=== PATIENT | female | born 1930 | race Caucasian/White ===

== ENCOUNTER → 2019-12-07 | Outpatient (CLI) | payer OTHER ==
[~2019-12-07] MED LIST: ASA81BEC PO; AZELASTINE137 MCG/0. NASAL; CARVEDILOL3.125 MG PO; CELEXA 20 MG TA20 MG PO; FUROSEMIDE 40 M40 M1 PO; IRBESARTAN75 MG PO; LIPITOR 40 MG T40 M1 PO; NORVASC5 MG PO; PROTONIX40 M2 PO; VITAMIN D21250 MC1 PO
== END ==
LOC: LAB 10:44
PROVIDERS: ATTEND Ophthalmology
DX: Z01.812 Encounter for preprocedural laboratory examination (principal); Z20.828 Contact with and (suspected) exposure to other viral communicable diseases

== ENCOUNTER → 2019-12-13 | Day surgery (SDC) | payer OTHER ==
[~2019-12-13] VITALS: Ht 139.7 cm; Wt 57.1 kg
[2019-12-13 07:35] VITALS: BP 146/50
--- NOTE | 2019-12-17 06:17 | O ---
[facility] [place] [address] OPERATIVE REPORT Name: SHAHID MATOS Room #: REG [facility]#: [id number] Admission: 12/13/19 Attend Phys: Sammy Haque MD Discharge: Date of : 34 Report #: [id number] THIS REPORT FOR: cc: Manoj Huang MD,Manoj Haque,Sammy Ramsey MD ~ CC: Manoj Haque DATE OF SERVICE: 12/13/2019 SOLE INKER: None. PREOPERATIVE DIAGNOSIS: Unilateral left lower lid entropion. POSTOPERATIVE DIAGNOSIS: Unilateral left lower lid entropion. OPERATION PERFORMED: Unilateral left lower lid entropion repair. ANESTHESIA: Local with IV sedation. COMPLICATIONS: None. INDICATIONS FOR PROCEDURE: This patient has unilateral lower lid entropion with chronic irritation and discharge. The current procedure is being undertaken in order to improve the patient's level of comfort and visual function. Informed consent was obtained to include but not limited to the loss of vision, bleeding, infection, scarring, failure to improve the problem and need for further surgery. DESCRIPTION OF OPERATION: The patient was taken to the operating room, where 2% Xylocaine with epinephrine mixed with equal parts of 0.75% Marcaine with Wydase was administered transcutaneously and transconjunctivally to the lower lid and lateral canthal area. The patient was then prepped and draped in the usual sterile fashion. A Mary clamp was used to clamp the lateral canthus, following which a sharp canthotomy and cantholysis were performed. Hemostasis was achieved with a monopolar cautery, as it was throughout the case. A tarsal strip was prepared laterally, removing the lash-bearing portion of the redundant lid margin and the redundant tarsal plate. A transconjunctival dissection was then undertaken just inferior to the lower border of the tarsal plate. The lower lid retractors were disinserted from the inferior border of the tarsal plate. The lower lid retractors were then advanced and reattached to the anterior surface of the tarsal plate with mattress 5-0 chromic sutures passed [address] [address] OPERATIVE REPORT Name: SHAHID MATOS Room #: REG [facility]#: [id number] Admission: 12/13/19 Attend Phys: Sammy Haque MD Discharge: Date of : 34 Report #: [id number] transconjunctivally and secured in the infraciliary margin. The tarsal strip was then secured laterally with 2 interrupted 5-0 Prolene sutures. The subcutaneous structures and the skin were then closed with multiple interrupted 6-0 plain gut sutures so the lateral canthal angle was sharply reformed. The wound was then cleaned and dressed with ophthalmic antibiotic ointment. The patient was then transported to the recovery area having tolerated the procedure well with no anesthetic or operative complications being noted. <ELECTRONICALLY SIGNED> By: Sammy Haque MD 12/17/19 0617 Sammy Haque MD /johanna
== END | disposition home or self-care (01) ==
LOC: OR
PROVIDERS: ATTEND Ophthalmology
DX: H02.005 Unspecified entropion of left lower eyelid (principal); I12.9 Hypertensive chronic kidney disease with stage 1 through stage 4 chronic kidney disease, or unspecified chronic kidney disease; N18.4 Chronic kidney disease, stage 4 (severe); E78.5 Hyperlipidemia, unspecified; F32.9 Major depressive disorder, single episode, unspecified; D64.9 Anemia, unspecified; Z98.890 Other specified postprocedural states; Z79.899 Other long term (current) drug therapy; Z79.82 Long term (current) use of aspirin; Z98.41 Cataract extraction status, right eye; Z98.42 Cataract extraction status, left eye
CPT/HCPCS: 50010; 50101; 50386; 50398; 51636; 56527; 56531; 62110; 62850; 70005